=== PATIENT | male | born 1990 | race American Indian/Alaskan Native ===

== ENCOUNTER 2018-06-12 10:27 | Emergency (ER) | payer OTHER ==
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
[2018-06-12] MEDS ORDERED: FLEXERIL PO ONE (13:00)
[2018-06-12] MEDS ORDERED: TORADOL IM ONE (13:00)
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
[2018-06-12 14:21] VITALS: BP 135/79
== END 2018-06-12 14:20 | disposition home or self-care (01) ==
LOC: ED 10:27
DX: M54.5 Low back pain (principal); M54.2 Cervicalgia; M25.511 Pain in right shoulder; M25.512 Pain in left shoulder; V49.59XA Passenger injured in collision with other motor vehicles in traffic accident, initial encounter; Y93.89 Activity, other specified; Y92.410 Unspecified street and highway as the place of occurrence of the external cause; Y99.8 Other external cause status
CPT/HCPCS: 96372; 99282; J1885